=== PATIENT | male | born 1995 | race Caucasian/White ===

== ENCOUNTER 2016-08-12 21:28 | Emergency (ER) | payer BC ==
[2016-08-12 21:39] VITALS: BP 161/66
--- NOTE | 2016-08-12 21:58 | EDM.PDOC ---
ED HPI GENERAL MEDICAL PROBLEM - General Chief Complaint: Respiratory Problem Stated Complaint: CONGESTION/FEVER Time Seen by Provider: 08/12/16 21:29 Source of Information: Reports: Patient History Limitations: Reports: No Limitations - History of Present Illness INITIAL COMMENTS - FREE TEXT/NARRATIVE: This is a 21-year-old male. For the last month he's been having lots of congestion and coughing. He went to the walk-in clinic yesterday and they started him on some Augmentin. He gives a history that it started out as more of nasal drainage with a cough. It initially was sort of cream colored phlegm the turned yellow but now much of the phlegm has resolved and he still having this persistent cough that seems to get worse and causes him to gag and sometimes vomit. He also complains of a very sore throat. He denies any significant wheezing or any sort or rhonchi or rattling in his lungs when he breathes. He does state the phlegm now has sometimes flecks of blood. His coughing has exhausted and worn him out. Apparently the walk-in clinic and not do any sort of throat culture or x-ray and he comes to the ER for evaluation. The coughing keeps him from sleeping at night time. He thinks he's had a fever though he is never documented but he does have spells of sweating. Chest Pain Score (Numeric/FACES): 6 - Related Data Allergies Allergy/AdvReac Type Severity Reaction Status Date / Time No Known Allergies Allergy Verified 08/12/16 21:42 Home Meds: Home Meds Amoxicillin/Clavulanate K [Augmentin 875 MG/125 MG] 1 tab PO BID 08/12/16 [ History] Benzonatate [Tessalon Perles] 200 mg PO TID PRN #20 cap 08/12/16 [Rx] Gentamicin Sulfate [IJD: Gentamicin 0.3% Ophth Soln] 5 ml EYEBOTH .THREE TIMES DAILY #5 ml 08/12/16 [Rx] predniSONE [Prednisone] 20 mg PO QAM #5 tablet 08/12/16 [Rx] Past Medical History - Past Health History Medical/Surgical History: Denies Medical/Surgical History Social & Family History - Tobacco Use Smoking Status *Q: Never Smoker - Caffeine Use Caffeine Use: Reports: Coffee, Tea - Recreational Drug Use Recreational Drug Use: No ED ROS GENERAL - Review of Systems Review Of Systems: See Below Constitutional: Reports: Fever, Malaise, Fatigue. Denies: Chills HEENT: Reports: Rhinitis, Sinus Problem, Throat Pain Respiratory: Reports: Cough. Denies: Shortness of Breath Cardiovascular: Reports: No Symptoms Endocrine: Reports: No Symptoms GI/Abdominal: Reports: Vomiting. Denies: Abdominal Pain, Diarrhea, Nausea : Reports: No Symptoms Musculoskeletal: Reports: Other (From all the coughing his chest is sore) Skin: Reports: No Symptoms Neurological: Reports: No Symptoms Psychiatric: Reports: No Symptoms Hematologic/Lymphatic: Reports: No Symptoms ED EXAM, GENERAL - Physical Exam Exam: See Below Exam Limited By: No Limitations General Appearance: Alert, WD/WN, No Apparent Distress Eye Exam: Bilateral Eye: Normal Inspection, Other (Should be noted he has some discharge on his eyelids, his eyes however did not have a pink tinge but he does have some inflammation of the conjunctiva) Ears: Normal External Exam, Normal Canal, Normal TMs Nose: Nasal Drainage, Clear Rhinorrhea Throat/Mouth: Normal Lips, Normal Voice, No Airway Compromise, Other (Tonsils are very enlarged and inflamed but no exudates are noted) Head: Atraumatic, Normocephalic Neck: Supple, Non-Tender Respiratory/Chest: No Respiratory Distress, Lungs Clear, Normal Breath Sounds. No: Crackles, Rales, Rhonchi, Wheezing Cardiovascular: Regular Rate, Rhythm, No Murmur GI/Abdominal: Soft, Non-Tender Back Exam: Full Range of Motion Extremities: Normal Inspection, Normal Range of Motion Neurological: Alert, Oriented Psychiatric: Normal Affect, Normal Mood Skin Exam: Warm, Dry Course - Vital Signs Last Recorded V/S: Last Vital Signs Temp 98.1 F 08/12/16 21:38 Pulse 78 08/12/16 21:38 Resp 20 08/12/16 21:38 BP 161/66 H 08/12/16 21:38 Pulse Ox 98 08/12/16 21:38 - Orders/Labs/Meds Orders: Active Orders 24 hr Category Date Time Status CULTURE STREP A CONFIRMATION [RM] Stat Lab 08/12/16 21:55 Results Rapid Strep w/culture conf [STREP SCRN A RAPID W CULT Lab 08/12/16 21:55 Results CONF] [RM] Stat - Re-Assessments/Exams Free Text/Narrative Re-Assessment/Exam: 08/12/16 22:40 I spoke to the patient regarding the strep test being negative. He does however have very enlarged tonsils and has the typical muffled voice. I believe he still has a sinus infection and the drainage is partly the reason why his coughing and the large tonsils but the reason why he is gagging when he coughs. I'm going to put him on short course of steroids for about 5 days to see if we can shrink the tonsils and refer him to a family physician for follow-up. Departure - Departure Time of Disposition: 22:41 Disposition: Home, Self-Care 01 Condition: Fair Clinical Impression: Acute sinusitis with symptoms > 10 days, Tonsillitis, chronic, Enlarged tonsils and adenoids Acute bronchitis Qualifiers: Bronchitis organism: unspecified organism Qualified Code(s): J20.9 - Acute bronchitis, unspecified Acute conjunctivitis, bilateral Qualifiers: Acute conjunctivitis type: unspecified Qualified Code(s): H10.33 - Unspecified acute conjunctivitis, bilateral - Discharge Information Prescriptions: Benzonatate [Tessalon Perles] 200 mg PO TID PRN #20 cap PRN Reason: Cough Gentamicin Sulfate [IJD: Gentamicin 0.3% Ophth Soln] 5 ml EYEBOTH .THREE TIMES DAILY #5 ml predniSONE [Prednisone] 20 mg PO QAM #5 tablet Referrals: Stacia Christianson PA [Physician [employer]] - Forms: ED Department Discharge Additional Instructions: Continue with the antibiotics faithfully, once you get the prednisone and start taking it right away as prescribed, use the Tessalon Perles as needed for cough , drink lots of water and avoid sodas and caffeine since that will promote infections, use the eyedrops 1 drop 4 times a day in both eyes to help clear up the drainage from your eyes, when you go to sleep try to sleep at an incline about 30 because it will help with your cough, you need to follow up with the family physician in 3-4 days for recheck of your tonsils so be certain to call their office on Monday for an appointment this week, return to the ER if needed - My Orders Last 24 Hours: My Active Orders 08/12/16 21:55 CULTURE STREP A CONFIRMATION [] Stat Rapid Strep w/culture conf [STREP SCRN A RAPID W CULT CONF] [RM] Stat - Assessment/Plan Last 24 Hours: My Active Orders 08/12/16 21:55 CULTURE STREP A CONFIRMATION [RM] Stat Rapid Strep w/culture conf [STREP SCRN A RAPID W CULT CONF] [RM] Stat
[2016-08-12] MEDS ORDERED: Benzonatate 100 MG Cap PO ONE (23:12)
== END 2016-08-12 23:19 | disposition home or self-care (01) ==
LOC: JD.ED 21:28
DX: J20.9 Acute bronchitis, unspecified (principal); H10.33 Unspecified acute conjunctivitis, bilateral; J01.90 Acute sinusitis, unspecified; J35.03 Chronic tonsillitis and adenoiditis
CPT/HCPCS: 87081; 87430; 99283; A9270